=== PATIENT | female | born 1980 | race Two or more races ===

== ENCOUNTER 2019-05-30 15:33 | Emergency (ER) | payer OTHER ==
[~2019-05-30] VITALS: Ht 167.6 cm; Wt 59.0 kg
[2019-05-30 15:58] VITALS: BP 121/77
== END 2019-05-30 17:29 | disposition home or self-care (01) ==
LOC: ER 15:33
DX: J06.9 Acute upper respiratory infection, unspecified (principal); J40 Bronchitis, not specified as acute or chronic; J04.0 Acute laryngitis
CPT/HCPCS: 71046; 87804; 93005

== ENCOUNTER 2023-05-10 16:45 | Emergency (ER) | payer OTHER ==
[~2023-05-10] VITALS: Ht 167.6 cm; Wt 62.0 kg
[2023-05-10 20:13] VITALS: BP 120/88; PULSE 87; RESP 16; TEMP 98; O2SAT 98
[2023-05-10 21:04] LABS: Urine Bacteria FEW /hpf (None Seen); Urine Blood Negative /uL (Negative); Urine Clarity Clear (Clear); Urine Color Colorless (Yellow); Urine Protein, UAD Negative (Negative); Urine Specific Gravity 1.006 (1.001-1.035); Urine Urobilinogen Normal (Negative); Urine WBC <1 /hpf (0 - 5); Urine pH 6.5 (5.0-8.0)
[2023-05-10] MEDS: KETOROLAC TROMETH 60MG/2ML VIAL IM ONE (21:45)
[2023-05-10] MEDS ORDERED: ACE3T PO (21:45)
== END 2023-05-10 21:54 | disposition home or self-care (01) ==
LOC: ER 16:45
DX: G44.209 Tension-type headache, unspecified, not intractable (principal); G93.0 Cerebral cysts
CPT/HCPCS: 70450; 81001; 81025; 96372; 99285; J1885